=== PATIENT | male | born 1945 | race Caucasian/White ===

== ENCOUNTER 2023-04-20 12:29 | Emergency (ER) | payer OTHER ==
[~2023-04-20] VITALS: Ht 170.2 cm; Wt 72.6 kg
[2023-04-20 12:39] VITALS: BP_SYST 128; PULSE 65; RESP 18; TEMP 98.3; O2SAT 98
[2023-04-20] MEDS ORDERED: IBUPROFEN 400 MG TABLET PO ONE (15:45)
[2023-04-20] MEDS ORDERED: IBUP-1968 PO (17:31)
[2023-04-20] MEDS ORDERED: IBUPROFEN 400 MG TABLET ONE (18:09)
== END 2023-04-20 18:20 | disposition home or self-care (01) ==
LOC: SED 12:29
DX: M25.561 Pain in right knee (principal); E11.9 Type 2 diabetes mellitus without complications; Z79.899 Other long term (current) drug therapy
CPT/HCPCS: 73564; 93971; 99284